=== PATIENT | male | born 1965 | race African-American/Black ===

== ENCOUNTER 2017-11-24 07:03 | Inpatient (IN) | payer OTHER, SELFPAY ==
--- NOTE | 2017-11-24 07:45 | RAD ---
PORTABLE CHEST 1 VIEW: DATE: 11/24/17. TIME: 7:57 a.m. HISTORY: Chest pain. Supraventricular tachycardia. FINDINGS/IMPRESSION: The heart is enlarged. The lungs are expanded without confluent areas of consolidation, pneumothorax , triston pulmonary edema, or pleural effusions. POS: OFF
[2017-11-24 07:47] LABS: #Basophils 0.1 thou/uL (0.0-0.2); #Eosinphils 0.1 thou/uL (0.0-0.7); #Lymphocytes 1.2 thou/uL (1.20-3.40); #Monocytes 0.4 thou/uL (0.11-0.59); #Neutrophils 3.7 thou/uL (1.40-6.50); %Basophils 1.5 % (0.0-1.0); %Eosinophils 1.5 % (0.0-10.0); %Monocytes 6.8 % (0.0-10.0); %Neutrophils 68.2 % (42.0-75.0); Hemoglobin 17.2 g/dL (14.0-18.0); Mean Corpuscular HGB CONC 31.3 g/dL (32.0-36.0); Mean Corpuscular Hemoglobin 30.3 pg (27.0-31.0); Mean Corpuscular Volume 96.8 fl (80.0-94.0); Mean Platelet Volume 6.4 fL (7.4-10.4); Platelet Count 279 thou/uL (130-400); Red Blood Cell (RBC) Count 5.66 mill/uL (4.70-6.10); White Blood Cell (WBC) Count 5.3 thou/uL (4.8-10.8)
[2017-11-24 08:09] LABS: ALT (SGPT) 13 U/L (8-55); AST (SGOT) 14 U/L (5-34); Albumin 3.6 g/dL (3.5-5.0); Alkaline Phosphatase 56 U/L (40-150); Anion Gap 11 mmol/L (10-20); BUN (Urea Nitrogen) 11 mg/dL (8.4-25.7); Bilirubin, Total 0.8 mg/dL (0.2-1.2); Calc. Creatinine Clearance 0 mL/min (70-130); Calcium 9.1 mg/dL (7.8-10.44); Carbon Dioxide 27 mmol/L (22-29); Chloride 101 mmol/L (98-107); Estimated GFR-MDRD 77; Globulin 3.9 g/dL (2.4-3.5); Glucose 95 mg/dL (70-105); Magnesium 2.1 mg/dL (1.6-2.6); Potassium 4.1 mmol/L (3.5-5.1); Protein, Total 7.5 g/dL (6.0-8.3); Sodium 135 mmol/L (136-145)
[2017-11-24 08:19] LABS: Prothrombin Time 13.7 SEC (12.0-14.7)
[2017-11-24] MEDS ORDERED: Clopidogrel Bisulfate 75 MG TAB ONE (08:40)
[2017-11-24 08:50] LABS: Bilirubin Negative (Negative); Blood, Urine Small (Negative); Clarity CLOUDY (Clear); Glucose, Urine (Dipstick) Negative (Negative); Leukocyte Small (Negative); Nitrite Negative (Negative); Protein, Urine (Dipstick) 30 mg/dL (Neg-Trace); Specific Gravity, Urine 1.009 (1.002-1.036)
[2017-11-24 08:52] LABS: Bacteria/HPF None Seen HPF (None Seen); Hyaline Casts/LPF 0-3 HYALINE CAST LPF (0-3 Hyaline)
[2017-11-24 09:00] LABS: Amphetamine Not Detected (NotDetected); Barbiturates Screen Not Detected (NotDetected); Benzodiazepine Screen Not Detected (NotDetected); Cocaine Metabolite Screen Not Detected (NotDetected); Medtox Control Line Valid? VALID (VALID); Medtox Reader # READER 4; Methadone Not Detected (NotDetected); Methamphetamine Not Detected (NotDetected); Opiate Screen Not Detected (NotDetected); Oxycodone Screen Not Detected (NotDetected); Phencyclidine (PCP) Not Detected (NotDetected); THC/Cannabinoid Screen Not Detected (NotDetected); Tricyclic Screen Not Detected (NotDetected)
[2017-11-24 09:02] LABS: Renal Epithelial 0-3 HPF (0-3); Transitional Epithelial 0-3 HPF (0-3)
[2017-11-24 09:23] LABS: CKMB 1.6 ng/mL (0-6.6); Troponin I 0.041 ng/mL (< 0.028)
[2017-11-24] MEDS ORDERED: Sulfameth/Trimethoprim DS 800-160mg TAB ONE (10:17)
[2017-11-24] MEDS ORDERED: hydrALAZINE 20 MG/ML VIAL ONE (10:36)
[2017-11-24 11:26] LABS: Troponin I 0.354 ng/mL (< 0.028)
[2017-11-24] MEDS ORDERED: Bisacodyl 5 MG TAB PO PRN (11:47)
[2017-11-24] MEDS ORDERED: Ondansetron HCl/PF 4 MG/2 ML Vial IVP PRN ×2 (11:47→11:48)
[2017-11-24] MEDS ORDERED: Nitroglycerin 0.4 MG TAB (25 Tab Bottle) SL PRN (11:47)
[2017-11-24] MEDS ORDERED: Ondansetron ODT 4 MG TAB PO PRN (11:47)
[2017-11-24] MEDS ORDERED: Calcium Carbonate 500 MG ChewTAB PO PRN (11:47)
[2017-11-24] MEDS ORDERED: Acetaminophen 325 MG TAB PO PRN ×2 (11:47→11:48)
[2017-11-24] MEDS ORDERED: Ondansetron ODT 4 MG TAB SL PRN (11:48)
[2017-11-24] MEDS ORDERED: Enoxaparin Sodium 120 MG/0.8 ML SYRINGE SC SCH (12:00)
[2017-11-24 12:03] LABS: Hemoglobin A1c 6.2 % (4.0-6.0)
[2017-11-24 12:11] LABS: Cardiac Risk 5.9 (Less than 4.5)
[2017-11-24 12:13] VITALS: BMI 61.2
[2017-11-24] MEDS ORDERED: FLU VACC QS2017-18 36 mo. & older 0.5 ML SYRINGE IM ONE (13:15)
--- NOTE | 2017-11-24 13:34 | HP-2 ---
CODE STATUS: FULL. PRIMARY CARE PHYSICIAN: City call. ATTENDING PHYSICIAN: Dr. Daniel Watkins RESIDENT: Booker Romero M.D. HISTORIAN: Self. CHIEF COMPLAINT: Chest pain. HISTORY OF PRESENT ILLNESS: A 52-year-old male presenting with chest pain for the last 2 hours. The patient was awoken from sleep this morning with substernal, sharp, radiating chest pain that radiate d to the left arm and jaw. The patient has never had this pain before. He denies any previous pain with exertion. The chest pain is associated with shortness breath and diaphoresis that resolved once treated. He describes a "not in the chest". The pain was relieved with nitro en route. EMS repor ts SVT at the scene that was resolved with vagal maneuvers. The patient has a significant family his tory for heart disease with a brother who suffered an myocardial infarction and coronary artery bypas s graft and a sister who also underwent CABG. ER: The patient was given Plavix 75 mg. PAST MEDICAL HISTORY: 1. Ankylosing spondylitis. 2. Rheumatoid arthritis. 3. Questionable Parkinson's history. PAST SURGICAL HISTORY: None. ALLERGIES: 1. ASPIRIN. 2. PENICILLIN. MEDICATIONS: None. FAMILY HISTORY: Father with Parkinson's disease. Mother with Alzheimer's and coronary artery diseas e status post coronary artery bypass graft. Sister with coronary artery disease status post CABG. B rother with coronary artery disease status post CABG and OK. SOCIAL HISTORY: The patient denies tobacco, alcohol or drugs. REVIEW OF SYSTEMS: GENERAL: Denies fever, chills, denies night sweats, denies fatigue. EYES: Denies vision changes, denies eye pain. ENT: Denies nasal congestion. Denies rhinorrhea. RESPIRATORY: Denies cough, congestion. Denies shortness of breath. CARDIOVASCULAR: Endorses chest pain. Denies palpitations, denies edema. Denies orthopnea. GASTROINTESTINAL: Denies nausea, denies vomiting, denies diarrhea. GENITOURINARY: Denies incontinence, denies dysuria, denies polyuria. SKIN: Denies rashes or lesions. MUSCULOSKELETAL: Denies pain, denies stiffness. Endorses lower back stiffness. NEUROLOGIC: Denies weakness. PSYCHIATRIC: Denies anxiety. Denies depression. PHYSICAL EXAMINATION: VITAL SIGNS: Blood pressure 168/117, pulse 93, respirations 20, temperature max 98.3, pulse ox 100% on 2 liters, current weight 172 kilograms. GENERAL: Alert, oriented x3, in no acute distress, obese, appropriately interactive. EYES: Conjunctivae within normal limits. NECK: Supple. No lymphadenopathy. CARDIOVASCULAR: Regular rate and rhythm, no murmurs. RESPIRATORY: Normal effort. Clear to auscultation bilaterally. ABDOMEN: Soft, nontender to palpation. EXTREMITIES: Show no cyanosis, no edema. NEUROLOGIC: Shows no focal deficits. Cranial nerves II through XII intact. SKIN: Warm and dry with no cyanosis. LABORATORY DATA: White blood count 4.3, hemoglobin 17.2, hematocrit 54.8, MCV 97, platelets 279. So dium 135, potassium 4.1, chloride 101, bicarbonate 27, BUN 11, creatinine 1.2, glucose 95, AST 14, A LT 13, alkaline phosphatase 56, calcium 9.1, total bilirubin 0.8. PT 13.7, INR 1.0. CK-MB is 1.6, t roponin 0.041. BNP 12.6. TSH 3.6. UA shows specific gravity 1.01, small blood, 30 protein, small leukocyte esterase, no nitrites, no ke tones, no glucose, 7-10 red blood cells, 11-20 white blood cells, no bacteria. EKG shows sinus tachycardia. Chest x-ray is within normal limits. UDS negative. ASSESSMENT AND PLAN: A 52-year-old male presenting with typical chest pain for 2 hours that resolve d with nitro. 1. Chest pain, rule out myocardial infarction. Trend troponins. Admit to observation. EKG shows s inus tachycardia. Morphine, oxygen, nitrates p.r.n. Stress test today since he has a significant fa estiven history. We will check fasting lipid panel and hemoglobin A1c. 2. Elevated creatinine. Give him 500 mL fluid bolus and trend. 3. Ankylosing spondylitis. The patient is not currently taking medications, but his pain is well co ntrolled. 4. Rheumatoid arthritis. The patient is not currently on steroids or disease modifying anti-rheumat oid drugs. 5. Obesity. Dietary counseling. DISPOSITION/LENGTH OF HOSPITAL STAY: Observation. Symptomatic regimen will be provided. History and physical exam as well as management discussed with Dr. Daniel Watkins.
--- NOTE | 2017-11-24 14:20 | HP ---
CHIEF COMPLAINT: Chest pain. HISTORY OF PRESENT ILLNESS: This is a 52-year-old gentleman with history of RA and ankylosing spondy litis who was awoke from sleep actually around 3:00 with left-sided substernal chest pain described a s pressure, it was severe, radiated to his neck and left arm associated with diaphoresis and nausea a nd palpitations. He did not exert himself, so he could not tell me if it was exertional or not. He subsequently came to the ED where he was admitted to us. Currently he is chest pain free. He is fee ling okay. No shortness of breath or cough. No chest pain, pressure or palpitations. REVIEW OF SYSTEMS: See the resident's note. PAST MEDICAL HISTORY: 1. Ankylosing spondylitis. 2. Rheumatoid arthritis. 3. Morbid obesity. He has not seen a doctor in a while. PAST SURGICAL HISTORY: Please see the resident's note. MEDICATIONS: Again, please see the resident's note. SOCIAL/FAMILY HISTORY: Reviewed. PHYSICAL EXAMINATION: VITAL SIGNS: Include a T-max 98.1, pulse 70, respirations 18, O2 sat 93% on room air, BP 144/74. GENERAL: No acute distress, resting comfortably in bed, morbidly obese. HEENT: Eyes; no icterus or injection. Pinna normal. Nares patent without rhinorrhea or discharge. Moist mucous membranes. CARDIOVASCULAR: Regular rate and rhythm without murmurs, gallops or rubs. No peripheral edema. LUNGS: Clear to auscultation bilaterally without wheezes, rales or rhonchi, but limited by habitus. ABDOMEN: Bowel sounds positive. Nontender to palpation. No palpable organomegaly. GENITOURINARY: Deferred. MUSCULOSKELETAL: Without obvious deformity, contracture of the hands or palpable synovitis. No obvi ous effusion in the knees, elbows or wrists. NEUROLOGIC: Cranial nerves II-XII intact. Symmetric. Motor is 5/5 in upper and lower extremities. Sensation intact to light touch in upper and lower extremities. SKIN: Intact without obvious wound, rash or sore. Sacrum was not checked by me. The skin is warm a nd dry. PSYCHIATRIC: Alert and oriented x4. LDH was slightly high. LABORATORY DATA: Include white count of 5.3, hemoglobin 17.2, platelets 279. Coags normal. [employer] ry: Sodium 135, potassium 4.1, chloride 101, bicarb 27, gap of 11, BUN 11, creatinine 1.2, estimated GFR 77. AST, ALT normal. Other LFTs normal. Initial troponin 0.041, repeat 0.354. Cholesterol wa s elevated with a total of 214. A1c 6.2. TSH is normal. Chest x-ray, my read, under penetrated film. In light of his habitus, difficult to see the angles, a ppears to be cardiomegaly on this AP film. Would consider repeat. EKG is a sinus rhythm with poor R-wave progression across precordium and nonspecific T-wave changes i n the anterior leads. He has Q-waves in 3 and AVF concerning for history of inferior PA. Presently there was SVT seen in the field, but I do not have that currently. ASSESSMENT AND PLAN: 1. Chest pain. I feel like the patient is high risk in light of his autoimmune disease, morbid obes ity, and a family history. We will go ahead and consult Cardiology and see if they prefer a cath. Melchor cardona is allergic to ASPIRIN. We will continue him on Plavix and treat him like a [id number] elevati on myocardial infarction with Lovenox and has Lipitor. 2. Morbid obesity. Counseled on diet and exercise. 3. Hypercholesterolemia. Statin. 4. Prediabetes, likely metformin as an outpatient. 5. Borderline high hemoglobin, suspect obesity hypoventilation/obstructive sleep apnea. 6. Hyponatremia, multiple etiologies possible including congestive heart failure, renal failure, felisa n, nausea. We will monitor and recheck in the morning. Consider a TTE. 7. Deep venous thrombosis prophylaxis. Lovenox. 8. GI: Prophylaxis; diet and we will actually keep him n.p.o. and give him a proton-pump inhibitor.
[2017-11-24 14:23] LABS: Troponin I 0.437 ng/mL (< 0.028)
[2017-11-24] MEDS: Carvedilol 3.125 MG TAB PO SCH (16:25)
[2017-11-24 16:56] LABS: Critical Call Chem Troponin I RESULT DECREASING; Troponin I 0.422 ng/mL (< 0.028)
[2017-11-24] MEDS ORDERED: Communication Order-Pharmacy FS SCH (20:30)
[2017-11-24] MEDS ORDERED: Sodium Chloride 0.9% 1,000 ML IV SCH (20:30)
[2017-11-24] MEDS ORDERED: Enoxaparin Sodium 100 MG/ML SYRINGE SC SCH (21:00)
[2017-11-24] MEDS: Atorvastatin Calcium 40 MG TAB PO SCH (21:27)
[2017-11-25] MEDS: Carvedilol 3.125 MG TAB PO SCH (04:47)
[2017-11-25] MEDS: Sodium Chloride 0.9% 1,000 ML IV SCH ×2 (04:50→15:28)
--- NOTE | 2017-11-25 04:52 | CON ---
DATE OF CONSULTATION: 11/24/2017 HISTORY OF PRESENT ILLNESS: John Sanchez is a 52-year-old black male who denied any previous episodes of chest discomfort. Apparently he woke at approximately 2:00 a.m. with feeling of his heart beating very rapidly and pressure in his chest radiating to his arm and somewhat to his left jaw. Ultimately, this did not go away. He called paramedics and apparently was in supraventricular tachycardia, which resolved with vagal maneuvers by paramedics. There are no EKG tracings to review. He also received three sublingual nitroglycerin. His discomfort resolved. Total duration of the pain was 2-3 hours, although he gives different times as to how long this lasted. He has not had any recurrence since admission. In the emergency room, he was given hydralazine 10 mg IV and Plavix 75 mg. PAST MEDICAL HISTORY: He was told once that he had high blood pressure. No history of diabetes or hypercholesterolemia. MEDICATIONS: None. ALLERGIES: ASPIRIN (hives) and PENICILLIN. OPERATIONS: None. He does have history of ankylosing spondylitis, rheumatoid arthritis, questionable Parkinson disease. FAMILY HISTORY: Father has inoperable coronary artery disease. Sister and brother had CABG. SOCIAL HISTORY: He does not smoke, denies any drug use. He rarely drinks alcohol now. REVIEW OF SYSTEMS: A 12-point review of systems otherwise is unremarkable. PHYSICAL EXAMINATION: VITAL SIGNS: 179/121, pulse 90. HEENT: PERRL. NECK: Supple. CHEST: Clear. CARDIAC: S1 and S2 are normal, without any S3, S4 or murmurs. ABDOMEN: Normal bowel sounds, without tenderness. The abdomen is very obese. EXTREMITIES: Revealed trace pretibial edema. NEUROLOGIC: Grossly intact. SKIN: Warm and dry. LABORATORY: EKG reveals normal sinus rhythm with possible inferior infarction. Hemoglobin 17.2, hematocrit 54.8, white count 5300. INR 1.0. Hemoglobin A1c is elevated at 6.2, cholesterol of 214, triglycerides 98, HDL 36, LDL 158. Troponin I is up to 0.422. CK-MB is normal. BNP 12.6. Sodium 135, potassium 4.2, chloride 101, carbon dioxide 27, BUN 11, creatinine 1.20. TSH is normal. IMPRESSION: 1. Yyu-AW-jbdseof elevation myocardial infarction. 2. Reported supraventricular tachycardia which resolved with vagal maneuvers. There are no EKG strips for review. 3. Morbid obesity. 4. Hypertension, untreated. 5. Hypercholesterolemia, untreated. 6. Diabetes, untreated with hemoglobin A1c of 6.2. 7. ASPIRIN allergy with hives. PLAN: Situation discussed with the patient. It was recommended he undergo cardiac catheterization. Risks of this were discussed including , myocardial infarction, dye reaction, vascular injury, CVA, transfusion, limb loss, renal loss, etc. Also, risk of intervention with PTCA and stent placement were discussed including , myocardial infarction, emergent CABG, restenosis, stent thrombosis, vessel perforation, etc. I am uncertain as to his reliability without adequate insurance backup and so I would just place a bare metal stent. MTDD
[2017-11-25 06:03] LABS: #Eosinphils 0.1 thou/uL (0.0-0.7); #Lymphocytes 1.3 thou/uL (1.20-3.40); #Monocytes 0.6 thou/uL (0.11-0.59); #Neutrophils 4.5 thou/uL (1.40-6.50); %Basophils 0.4 % (0.0-1.0); %Eosinophils 1.2 % (0.0-10.0); %Lymphocytes 19.7 % (21.0-51.0); %Monocytes 8.7 % (0.0-10.0); Hemoglobin 16.4 g/dL (14.0-18.0); Mean Corpuscular HGB CONC 29.7 g/dL (32.0-36.0); Mean Corpuscular Hemoglobin 28.5 pg (27.0-31.0); Mean Corpuscular Volume 95.9 fl (80.0-94.0); Mean Platelet Volume 6.5 fL (7.4-10.4); Platelet Count 306 thou/uL (130-400); RBC Distribution Width 13.1 % (11.5-14.5); Red Blood Cell (RBC) Count 5.75 mill/uL (4.70-6.10); White Blood Cell (WBC) Count 6.4 thou/uL (4.8-10.8)
[2017-11-25 06:17] LABS: Anion Gap 11 mmol/L (10-20); BUN (Urea Nitrogen) 14 mg/dL (8.4-25.7); Calc. Creatinine Clearance 243 mL/min (70-130); Calcium 9.3 mg/dL (7.8-10.44); Carbon Dioxide 30 mmol/L (22-29); Chloride 100 mmol/L (98-107); Estimated GFR-MDRD Greater than 90; Glucose 107 mg/dL (70-105); Potassium 4.1 mmol/L (3.5-5.1); Sodium 137 mmol/L (136-145)
--- NOTE | 2017-11-25 06:26 | EKG ---
Test Reason : Blood Pressure : / mmHG Vent. Rate : 093 BPM Atrial Rate : 093 BPM P-R Int : 190 ms QRS Dur : 074 ms QT Int : 360 ms P-R-T Axes : 026 002 029 degrees QTc Int : 447 ms Normal sinus rhythm Possible Left atrial enlargement Inferior infarct , age undetermined Abnormal ECG No previous ECGs available Confirmed by JULIETTE PARKER ([id number]) on 11/25/2017 6:26:13 AM Referred By: ANITA Confirmed By:JULIETTE PARKER
[2017-11-25] MEDS ORDERED: hydrALAZINE 20 MG/ML VIAL SLOW IVP PRN (08:20)
--- NOTE | 2017-11-25 08:24 | PDOC.FM ---
- Subjective Subjective: Patient sitting up in bed, awake and alert this morning. No acute events overnight. He denies CP, SOB, diaphoresis, n/v/d at this time. He is still requiring O2 via NC, despite not being on home oxygen therapy. Dr. Perez will be taking him to the microbiology lab assistant today - Objective MAR Reviewed: Yes Vital Signs & Weight: Vital Signs (12 hours) Temp Pulse Resp BP BP BP Pulse Ox 11/25/17 04:47 92 172/106 H 11/25/17 04:44 98.8 F 92 20 172/106 H 93 L 11/24/17 23:40 98.3 F 95 24 H 176/108 H 93 L 11/24/17 21:27 98.6 F 90 20 92 L 11/24/17 21:26 81 164/95 H Weight Weight 187.243 kg I&O: 11/24/17 11/25/17 11/26/17 06:59 06:59 06:59 Intake Total 350 Balance 350 Result Diagrams: 11/25/17 04:45 11/25/17 04:45 <Booker Romero - Last Filed: 11/25/17 08:22> - Objective Vital Signs & Weight: Vital Signs (12 hours) Temp Pulse Resp BP BP BP Pulse Ox 11/25/17 12:30 157/97 H 11/25/17 12:05 97.8 F 88 16 152/92 H 94 L 11/25/17 11:50 87 18 170/95 H 94 L 11/25/17 09:38 176/111 H 11/25/17 08:35 86 11/25/17 08:00 98.2 F 86 16 92 L 11/25/17 07:53 98.2 F 86 16 181/129 H 92 L 11/25/17 04:47 92 172/106 H 11/25/17 04:44 98.8 F 92 20 172/106 H 93 L Weight Weight 187.243 kg I&O: 11/24/17 11/25/17 11/26/17 06:59 06:59 06:59 Intake Total 350 Balance 350 Result Diagrams: 11/25/17 04:45 11/25/17 04:45 <Daniel Watkins - Last Filed: 11/25/17 13:16> Phys Exam - Physical Examination Constitutional: NAD Respiratory: no wheezing, no rales Cardiovascular: RRR, no significant murmur Gastrointestinal: soft, non-tender Musculoskeletal: no edema Psychiatric: normal affect, A&O x 3 <Booker Romero - Last Filed: 11/25/17 08:22> Dx/Plan (1) NSTEMI (non-ST elevated myocardial infarction) Code(s): I21.4 - NON-ST ELEVATION (NSTEMI) MYOCARDIAL INFARCTION Status: Acute Plan: Trop up to .43 EKG normal Cardiology consulted and will be taking patient to microbiology lab assistant today CP has resolved continue morphine, oxygen, nitrates PRN (2) Prediabetes Code(s): R73.03 - PREDIABETES Status: Chronic Plan: AIC: 6.2 Will likely need to start metformin in OP setting (3) Hypertension Code(s): I10 - ESSENTIAL (PRIMARY) HYPERTENSION Status: Acute Plan: Patient denies history of hypertension, but has had consistently elevated blood pressures since admission Will start an ZULEYMA-i prior to discharge (4) Hyperlipidemia Code(s): E78.5 - HYPERLIPIDEMIA, UNSPECIFIED Status: Acute Plan: Chol: 214 LDL: 158 will need statin therapy moving forward (5) Ankylosing spondylitis Code(s): M45.9 - ANKYLOSING SPONDYLITIS OF UNSPECIFIED SITES IN SPINE Status: Chronic Plan: Patient unsure of when he was diagnosed with this condition Is not currently on any medication and is well controlled (6) Rheumatoid arthritis Code(s): M06.9 - RHEUMATOID ARTHRITIS, UNSPECIFIED Status: Acute Plan: not currently on medication - Plan Plan: Plan: -microbiology lab assistant today <Booker Romero - Last Filed: 11/25/17 08:22> Attending Addendum - Attending Addendum I personally evaluated the patient and discussed the management with Dr. Romero I agree with and repeated the History, Examination, Assessment and Plan documented above with any addition or exceptions noted below. Post cath he is doing really well, no cp/sob/n/v/f/c. Risk factor management and likely discharge tonight or tomorrow. <Daniel Watkins - Last Filed: 11/25/17 13:16>
[2017-11-25] MEDS ORDERED: Heparin 10,000 UNITS/1 ML VIAL ONE (08:31)
[2017-11-25] MEDS ORDERED: Lisinopril 2.5 MG TAB PO SCH (09:00)
[2017-11-25] MEDS ORDERED: Aspirin 325 MG TAB PO SCH (09:00)
[2017-11-25] MEDS ORDERED: Lisinopril 5 MG TAB PO SCH (09:00)
[2017-11-25] MEDS ORDERED: Enoxaparin Sodium 40 MG/0.4 ML SYRINGE SC SCH (09:00)
[2017-11-25] MEDS ORDERED: Fentanyl 100 MCG/2 ML VIAL ONE (10:29)
[2017-11-25] MEDS ORDERED: Midazolam HCl 2 mg/2 ml Vial ONE (10:30)
[2017-11-25] MEDS ORDERED: Lidocaine 1% (PF) 30 ML VIAL ONE (10:31)
[2017-11-25] MEDS ORDERED: Protamine Sulfate 50 MG/5 ML VIAL ONE (10:55)
[2017-11-25] MEDS ORDERED: hydrALAZINE 20 MG/ML VIAL ONE (11:03)
[2017-11-25] MEDS ORDERED: Acetaminophen/Codeine 30-300mg Tablet PO PRN ×2 (11:06)
[2017-11-25] MEDS ORDERED: traMADol HCl 50 MG TAB PO PRN (11:06)
[2017-11-25] MEDS ORDERED: Sodium Chloride 0.9% 200 ML IV SCH (11:15)
[2017-11-25] MEDS ORDERED: Carvedilol 6.25 MG TAB PO SCH (11:15)
[2017-11-25] MEDS ORDERED: Carvedilol 25 MG TAB PO SCH (11:15)
[2017-11-25] MEDS ORDERED: Iopamidol 370 76% 50 ML VIAL FS ONE (12:26)
[2017-11-25] MEDS ORDERED: Iopamidol 370 76% 100 ML VIAL ONE (12:26)
[2017-11-25] MEDS: Carvedilol 6.25 MG TAB PO SCH (17:26)
[2017-11-25] MEDS: Lisinopril 5 MG TAB PO SCH (21:25)
[2017-11-25] MEDS: Atorvastatin Calcium 40 MG TAB PO SCH (21:25)
[2017-11-26] MEDS: Sodium Chloride 0.9% 1,000 ML IV SCH ×2 (03:52→15:28)
--- NOTE | 2017-11-26 08:44 | PDOC.FM ---
- Subjective Subjective: Patient sitting up in bed this morning in no distress. No acute events overnight per nursing. Patient desaturated and was put on CPAP, tolerated well. He reports no history of ENOC. - Objective MAR Reviewed: Yes Vital Signs & Weight: Vital Signs (12 hours) Temp Pulse Resp BP BP Pulse Ox 11/26/17 08:00 98.2 F 88 16 97 11/26/17 07:32 98.2 F 88 16 168/96 H 97 11/26/17 05:34 83 20 94 L 11/26/17 05:08 155/108 H 11/26/17 04:29 93 L 11/26/17 04:22 171/114 H 83 L 11/25/17 23:42 99.1 F 90 22 H 138/94 H 93 L Weight Weight 187.243 kg I&O: 11/25/17 11/26/17 11/27/17 06:59 06:59 06:59 Intake Total 350 1000 Output Total 1000 Balance 350 0 Result Diagrams: 11/25/17 04:45 11/25/17 04:45 <Booker Romero - Last Filed: 11/26/17 08:42> - Objective Vital Signs & Weight: Vital Signs (12 hours) Temp Pulse Resp BP BP Pulse Ox 11/26/17 11:28 98.1 F 73 24 H 170/117 H 98 11/26/17 08:00 98.2 F 88 16 97 11/26/17 07:32 98.2 F 88 16 168/96 H 97 11/26/17 05:34 83 20 94 L 11/26/17 05:08 155/108 H 11/26/17 04:29 93 L 11/26/17 04:22 171/114 H 83 L Weight Weight 187.243 kg I&O: 11/25/17 11/26/17 11/27/17 06:59 06:59 06:59 Intake Total 350 1000 Output Total 1000 Balance 350 0 Result Diagrams: 11/25/17 04:45 11/25/17 04:45 <Daniel Watkins - Last Filed: 11/26/17 12:05> Phys Exam - Physical Examination Constitutional: NAD HEENT: moist MMs Respiratory: no wheezing, no rales Cardiovascular: RRR, no significant murmur Gastrointestinal: soft, non-tender Neurological: moves all 4 limbs Psychiatric: normal affect, A&O x 3 <Booker Romero - Last Filed: 11/26/17 08:42> Dx/Plan (1) NSTEMI (non-ST elevated myocardial infarction) Code(s): I21.4 - NON-ST ELEVATION (NSTEMI) MYOCARDIAL INFARCTION Status: Acute Plan: POD #1 from cardiac catheterization -normal coronary arteries -continue risk factor management CP has resolved continue morphine, oxygen, nitrates PRN (2) Prediabetes Code(s): R73.03 - PREDIABETES Status: Chronic Plan: AIC: 6.2 Will likely need to start metformin in OP setting (3) Hypertension Code(s): I10 - ESSENTIAL (PRIMARY) HYPERTENSION Status: Acute Plan: Patient denies history of hypertension, but has had consistently elevated blood pressures since admission Now on Coreg BID and Lisinopril BID (4) Hyperlipidemia Code(s): E78.5 - HYPERLIPIDEMIA, UNSPECIFIED Status: Acute Plan: Chol: 214 LDL: 158 continue statin (5) Ankylosing spondylitis Code(s): M45.9 - ANKYLOSING SPONDYLITIS OF UNSPECIFIED SITES IN SPINE Status: Chronic Plan: Patient unsure of when he was diagnosed with this condition Is not currently on any medication and is well controlled (6) Rheumatoid arthritis Code(s): M06.9 - RHEUMATOID ARTHRITIS, UNSPECIFIED Status: Acute Plan: not currently on medication - Plan Plan: Plan: -likely discharge today on statin and blood pressure medications -patient will need f/u for prediabetes and possible ENOC <Booker Romero - Last Filed: 11/26/17 08:42> Attending Addendum - Attending Addendum I personally evaluated the patient and discussed the management with Dr. Romero. I agree with and repeated the History, Examination, Assessment and Plan documented above with any addition or exceptions noted below. Patient feels great this AM. Wants to go home. NAD, resting comfortably off O2 RRR s M, no edema/calf tenderness CTAB s wheeze or crackle Cath negative yesterday, EF 55%. He unfortunately desatted to the 80's while walking. Will discuss with cards concerning any additional workup for PE/CHF, etc, and then discharge if they approve. <Daniel Watkins - Last Filed: 11/26/17 12:05>
[2017-11-26] MEDS: Carvedilol 6.25 MG TAB PO SCH (09:22)
[2017-11-26] MEDS: Lisinopril 5 MG TAB PO SCH (09:22)
[2017-11-26 11:45] VITALS: BP 170/117; TEMP 98.1
--- NOTE | 2017-11-27 00:59 | DIS-2 ---
DATE OF ADMISSION: 11/24/2017 DATE OF DISCHARGE: 11/26/2017 RESIDENT: Booker Romero M.D. ADMITTING ATTENDING: Daniel Watkins M.D. DISCHARGE ATTENDING: Daniel Watkins M.D. CONSULTATION: Cardiology. PROCEDURES: Cardiac catheterization showing no disease in any coronary arteries with an ejection fra ction of 55 %. DISCHARGE DIAGNOSIS: Demand ischemia likely secondary to supraventricular tachycardia. SECONDARY DIAGNOSES: 1. Hypertension. 2. Hyperlipidemia. 3. Prediabetes. DISCHARGE MEDICATIONS: 1. Atorvastatin 40 mg p.o. at bedtime. 2. Carvedilol 6.25 mg p.o. b.i.d. 3. Lisinopril 5 mg p.o. b.i.d. CONTINUED MEDICATIONS: Plavix. HISTORY OF PRESENT ILLNESS AND HOSPITAL COURSE: This is a 52-year-old obese -[place] male pr esenting with substernal, sharp, radiating chest pain. The pain radiated to the left arm and jaw and it was associated with shortness of breath and diaphoresis. It was relieved with nitro en route. E MS reported SVT at the scene was resolved with vagal maneuvers. The patient had a significant histor y for heart disease with a brother who suffered a myocardial infarction and underwent CABG as well as a sister who underwent CABG. The patient was brought in with borderline troponins x1 and troponins t hen bumped to 0.4. Cardiology was consulted and decided to take the patient to catheterization. The patient had a clean catheterization with normal ejection fraction. He was found to have significant risk factors for heart disease including hypertension, hyperlipidemia and prediabetes. The patient was started on statin, Coreg and lisinopril. He has no PCP. He will be followed up with [facility]. The patient was discharged in stable condition with no chest pain. DISPOSITION: Stable. DISCHARGE INSTRUCTIONS: 1. Location: Home. 2. Diet: Heart healthy. 3. Activity: As tolerated. 4. Followup: Follow up with [facility] in 7 to 10 days.
--- NOTE | 2018-01-03 14:21 | EKG ---
Test Reason : CHEST PAIN Blood Pressure : / mmHG Vent. Rate : 101 BPM Atrial Rate : 101 BPM P-R Int : 206 ms QRS Dur : 076 ms QT Int : 372 ms P-R-T Axes : 012 -31 018 degrees QTc Int : 482 ms Sinus tachycardia with occasional ventricular-paced complexes Possible Left atrial enlargement Left axis deviation Inferior infarct , age undetermined Anterior infarct , age undetermined Abnormal ECG Confirmed by NAT Davies, ONDINA ([id number]), medical editor SHANKAR BAKER ([id number]) on 01/03/2018 2:20:52 PM Referred By: Confirmed By:ONDINA JOHNS M.D.
== END 2017-11-26 17:10 | disposition home or self-care (01) | DRG 287 ==
LOC: ERS 07:03 → OBSVTOIN 10:03 → 2SW 10:03
PROVIDERS: ADMIT Family Medicine; ATTEND Family Medicine
PROC: 4A023N7 Measurement of Cardiac Sampling and Pressure, Left Heart, Percutaneous Approach (ICD-10-PCS; principal; 2017-11-25)
PROC: B2111ZZ Fluoroscopy of Multiple Coronary Arteries using Low Osmolar Contrast (ICD-10-PCS; 2017-11-25)
PROC: B2151ZZ Fluoroscopy of Left Heart using Low Osmolar Contrast (ICD-10-PCS; 2017-11-25)
DX: I47.1 Supraventricular tachycardia (principal); I24.8 Other forms of acute ischemic heart disease; E66.01 Morbid (severe) obesity due to excess calories; E87.1 Hypo-osmolality and hyponatremia; M35.9 Systemic involvement of connective tissue, unspecified; E11.9 Type 2 diabetes mellitus without complications; Z68.44 Body mass index [BMI] 60.0-69.9, adult; I10 Essential (primary) hypertension; E78.5 Hyperlipidemia, unspecified; M45.9 Ankylosing spondylitis of unspecified sites in spine; M06.9 Rheumatoid arthritis, unspecified; E78.00 Pure hypercholesterolemia, unspecified
CPT/HCPCS: 36415; 71045; 80048; 80053; 80061; 80306; 81003; 81015; 82553; 83036; 83735; 83880; 84443; 84484; 85025; 85347; 85610; 87086; 90471; 90682; 90732; 93005; 93010; 93458; 93798; 94660; 94760; 96374; 99152; 99153; A4216; C1769; G0008; G0009; J0360; J1644; J1652; J2001; J2250; J2720; J3010; Q2036